=== PATIENT | female | born 1955 | race Caucasian/White ===

== ENCOUNTER → 2019-01-05 10:55 | Outpatient (CLI) | payer OTHER, SELFPAY ==
--- NOTE | 2019-01-05 10:59 | BD_ITS ---
STUDY: DUAL ENERGY X-RAY ABSORPTIOMETRY / DXA REASON FOR EXAM: Female, 63 years old. The patient is postmenopausal. Loss of height. TECHNIQUE: Bone Mineral Density (BMD) measurements of lumbar spine and left hip were obtained. COMPARISON: None. FINDINGS: Lumbar Spine (L1-L4): g/cm2 (1.069) / T-score (-0.8) / Z-score (0.5) Findings are suggestive of normal bone density with a low fracture risk. Left Femur Total: g/cm2 (0.851) / T-score (-1.2) / Z-score (-0.3) Left Femoral Neck: g/cm2 (0.839) / T-score (-1.4) / Z-score (-0.1) BD/Dexa Bone Density Study IMPRESSION: The patient is considered osteopenic as outlined below according to World Aaron Organization (WHO) criteria with a low fracture risk. Reference Information: The T-score is the number of standard deviations above or below the standard which is normal for young adults at their peak bone mineral density. The World Health Organization (WHO) interprets the T-scores as follows: Above -1 Normal bone density Between -1 and -2.5 Osteopenia Equal to / or below -2.5 Osteoporosis As a practical clinical guideline, osteopenia may be graded as follows: Mild -1 through -1.5 Moderate -1.6 through -2.0 Severe -2.1 through -2.4 The Z-score is the number of standard deviations above or below age-matched controls. A Z-score of less than -1.5 would be considered abnormal. References: 1. NIH Osteoporosis and Related Bone Diseases http://www.osteo.org 2. International Society for Clinical Densitometry http://www.iscd.org 3. National Osteoporosis Foundation http://www.nof.org Electronically Signed: Chapo Saez, at 15:12 EST , Service support ,
== END ==
PROVIDERS: Family Provider Family Medicine; PCP Family Medicine; Referring Provider Family Medicine; Visit Provider Family Medicine
DX: Z78.0 Asymptomatic menopausal state (principal)
CPT/HCPCS: 77080

== ENCOUNTER → 2020-05-13 10:29 | Outpatient (CLI) | payer OTHER, SELFPAY ==
--- NOTE | 2020-05-13 12:45 | NEURO_ITS ---
NCS and/or EMG Patient Report Ordering Doctor: Erik Waller DATE OF SERVICE: 05/13/20 Indication: Intermittent tingling and numbness in the toes of the left foot with prolonged standing. History of chronic low back pain and occasional radiation down both lower extremities. Evaluate for lumbosacral radiculopathy. Findings: Nerve conduction studies were performed in the left lower extremity. The left peroneal motor study recording the extensor digitorum brevis showed a borderline normal amplitude, normal distal latency and normal conduction velocity. No conduction block or focal slowing was present across the fibular neck. The left tibial motor study recording the abductor hallucis brevis showed a normal amplit ude, normal distal latency and normal conduction velocity. Left sural sensory response showed a normal amplitude and conduction velocity. Left superficial peroneal sensory response was absent. Needle EMG of the left lower extremity and lumbar paraspinal muscles was performed. No denervation was present in any muscle. The extensor hallucis longus revealed motor units which were large amplitude, long duration and mildly polyphasic. The tensor facia latae revealed motor units which were slightly long duration and polyphasic. All other examined muscles demonstrated normal motor unit morphology, activation and recruitment patterns. Impression: This is a mildly abnormal study. There is electrophysiologic evidence suggestive, but not diagnostic, of a chronic, left L5 radiculopathy. The absent superficial peroneal response is of unclear significance. In some cases of L5 radiculopathy, the superficial peroneal response can be lost (due to the intraspinal location of the dorsal root ganglion at this level in some patients). There is no other evidence to suggest a superimposed peroneal neuropathy. Nam Reynaga D.O.
== END ==
PROVIDERS: PCP Family Medicine; Referring Provider Orthopaedic Surgery; Visit Provider Orthopaedic Surgery
DX: M47.26 Other spondylosis with radiculopathy, lumbar region (principal)
CPT/HCPCS: 95886; 95908

== ENCOUNTER → 2022-07-03 | Outpatient (CLI) | payer MEDICAID, SELFPAY | END | disposition home or self-care (01) | LOC: SL 20:17 | PROVIDERS: PCP Internal Medicine; Referring Provider Internal Medicine Critical Care Medicine; Visit Provider Internal Medicine Critical Care Medicine | DX: G47.10 Hypersomnia, unspecified (principal) | CPT/HCPCS: 95810 ==

== ENCOUNTER → 2022-07-14 | Outpatient (CLI) | payer MEDICAID, SELFPAY ==
--- NOTE | 2022-07-15 07:29 | PFT ---
INTRODUCTION: The patient is a 66-year-old female who presents for pulmonary function studies secondary to a diagnosis of dyspnea. Respiratory therapy reported good patient effort. Bronchodilators were used during testing. INTERPRETATION: Forced expiration spirometry demonstrates no evidence of a large airways obstructive ventilatory defect. There was no significant response to aerosolized bronchodilators. Spirograms are of good quality and plateau normally. Body plethysmography was performed and revealed lung volumes to be within normal limits. Diffusing capacity by single breath CO was also within normal limits. IMPRESSION: Grossly normal pulmonary function studies.
== END | disposition home or self-care (01) ==
LOC: PSN 08:28
PROVIDERS: PCP Internal Medicine; Referring Provider Internal Medicine Critical Care Medicine; Visit Provider Internal Medicine Critical Care Medicine
DX: R06.00 Dyspnea, unspecified (principal)
CPT/HCPCS: 94060; 94726; 94729

== ENCOUNTER → 2022-07-16 | Outpatient (CLI) | payer MEDICAID, SELFPAY ==
--- NOTE | 2022-07-16 13:09 | ECHOCS_ITS ---
Reason For Study: DYSPNEA Procedure This was a 2D Doppler, Color Flow transthoracic echocardiogram. Exam performed in department. Left Ventricle Normal size and thickness. The left ventricular ejection fraction is 60 %. Diastolic function is indeterminate. Right Ventricle Normal right ventricle. Atria The left atrium is mildly enlarged. Normal right atrium. Mitral Valve Trivial mitral valve insufficiency. Tricuspid Valve Mild tricuspid valve insufficiency. Normal pulmonary artery pressure. Aortic Valve Normal aortic valve. Pulmonic Valve The pulmonic valve is not well visualized. Trivial pulmonic valve insufficiency. Great Vessels Normal sized aortic root. Pericardium/Pleural No pericardial effusion. Medication 22 gauge I.V. with prn adaptor inserted into right arm. Performed a rapid injection of agitated mix of 9 cc saline and 1cc air to assess for atrial septal defect. MMode/2D Measurements & Calculations LVIDd: 5.2 cm IVSd: 0.95 cm Ao root diam: 3.1 cm LVIDs: 3.5 cm LVPWd: 0.81 cm RVDd: 3.2 cm FS: 32.1 % LAV(MOD-bp): 76.4 ml LVAd ap4: 31.1 cm2 SV(MOD-sp4): 62.7 ml LAV(MOD-bp) Indexed: 43.0 ml/m2 LVLd ap4: 8.0 cm LAV(MOD-sp2): 90.5 ml EDV(MOD-sp4): 98.8 ml LAV(MOD-sp4): 63.5 ml EDV(sp4-el): 102.3 ml LVAs ap4: 16.6 cm2 LVLs ap4: 6.5 cm ESV(MOD-sp4): 36.1 ml ESV(sp4-el): 36.1 ml EF(MOD-sp4): 63.5 % EF(sp4-el): 64.7 % SV(sp4-el): 66.1 ml LA A4 area: 22.3 cm2 LA dimension(2D): 3.4 cm RA A4 area: 18.4 cm2 Time Measurements MV dec time: 0.16 sec Doppler Measurements & Calculations MV E max jack: 78.3 cm/sec Lat Peak E' Jack: 6.5 cm/sec Med Peak E' Jack: 7.6 cm/sec MV A max jack: 106.2 cm/sec E/E' lat: 12.1 E/E' med: 10.3 MV E/A: 0.74 MV V2 max: 115.7 cm/sec MV dec slope: 478.1 cm/sec2 Ao V2 max: 154.9 cm/sec MV max P.4 mmHg Ao max P.6 mmHg MV V2 mean: 73.2 cm/sec Ao V2 mean: 113.8 cm/sec MV mean P.4 mmHg Ao mean P.8 mmHg MV V2 VTI: 31.7 cm Ao V2 VTI: 35.9 cm AV (velocity ratio): 0.84 LV V1 max: 123.5 cm/sec PA V2 max: 101.8 cm/sec TR max jack: 244.0 cm/sec LV V1 max P.1 mmHg PA V2 mean: 77.7 cm/sec TR max P.8 mmHg LV V1 mean P.8 mmHg LV V1 mean: 91.6 cm/sec LV V1 VTI: 30.3 cm ECHO/Echo Complete W/ Contrast Interpretation Summary The left ventricular ejection fraction is 60 %. Diastolic function is indeterminate. The left atrium is mildly enlarged. Mild tricuspid valve insufficiency. Ordering Physician: Uri Au Referring Physician: Uri Au Performed By: Elvira Phelan RCS
== END | disposition home or self-care (01) ==
LOC: CVS 13:01
PROVIDERS: PCP Internal Medicine; Referring Provider Internal Medicine Critical Care Medicine; Visit Provider Internal Medicine Critical Care Medicine
DX: R06.00 Dyspnea, unspecified (principal)
CPT/HCPCS: 93306; C8929

== ENCOUNTER → 2022-07-21 | Outpatient (CLI) | payer MEDICAID, SELFPAY ==
[2022-07-21] MEDS: Zolpidem Tartrate 5 MG Tablet PO (22:00)
== END | disposition home or self-care (01) ==
LOC: SL 20:06
PROVIDERS: PCP Internal Medicine; Referring Provider Nurse Practitioner Acute Care; Visit Provider Nurse Practitioner Acute Care
DX: G47.10 Hypersomnia, unspecified (principal)
CPT/HCPCS: 95810

== ENCOUNTER → 2022-11-12 | Outpatient (CLI) | payer MEDICARE, SELFPAY ==
[2022-11-12] MEDS: Methacholine Chloride 18 ml neb kit INHALATION (13:13)
--- NOTE | 2022-11-13 07:03 | BRONCHALL ---
Bronchoprovocation Challenge Bronchoprovocation Challenge Bronchoprovocation Challenge: Brief HPI: Patient is a 67 year old female, currently under the care of myself, who presents to [facility] for a bronchoprovocation study secondary to diagnosis of dyspnea. Respiratory therapist reports good effort and reproducible results. Interpretation: Initial spirometry showed no large airways obstructive ventilatory defect. The patient was then given increasingly concentrated doses of methacholine in a stepwise/standardized fashion, using a modified ATS protocol. The patient?s maximum reduction in FEV1 was 8 percent predicted. Impression: Negative Bronchoprovocation study. This is NOT consistent with the diagnosis of asthma.
== END | disposition home or self-care (01) ==
PROVIDERS: PCP Family Medicine; Referring Provider Internal Medicine Critical Care Medicine; Visit Provider Internal Medicine Critical Care Medicine
DX: R06.00 Dyspnea, unspecified (principal)
CPT/HCPCS: 94070; 95070